=== PATIENT | female | born 1960 | race Asian ===

== ENCOUNTER 2018-06-29 05:41 | Day surgery (SDC) | payer OTHER ==
[~2018-06-29] VITALS: Ht 157.5 cm; Wt 84.1 kg
[~2018-06-29 05:41] MED LIST: LOSA25TA6 PO; VENL25TA PO
[2018-06-29] MEDS ORDERED: LACTATED RINGERS 1,000 ML IV SCH (06:11)
[2018-06-29 06:46] LABS: HCG UR SG 1.026 (1.003-1.030)
[2018-06-29 06:47] VITALS: BP 134/81
[2018-06-29 06:54] LABS: BASOPHILS # (AUTO) 0.03 x10^3/uL (0-0.1); BASOPHILS % (AUTO) 0 % (0-1); EOSINOPHILS # (AUTO) 0.19 x10^3/uL (0-0.4); EOSINOPHILS % (AUTO) 2 % (1-7); LYMPHOCYTES # (AUTO) 1.58 x10^3/uL (1-3.4); LYMPHOCYTES % (AUTO) 20 % (22-44); MD NO; MEAN CORPUSCULAR HEMOGLOBIN 31.7 pg (27.0-34.8); MEAN CORPUSCULAR HGB CONC 33.6 g/dL (32.4-35.8); MEAN CORPUSCULAR VOLUME 94.2 fL (80-100); MEAN PLATELET VOLUME 9.9 fL (7.4-10.4); MONOCYTES # (AUTO) 0.45 x10^3/uL (0.2-0.8); MONOCYTES % (AUTO) 6 % (2-9); NEUTROPHILS # (AUTO) 5.73 x10^3/uL (1.8-6.8); NEUTROPHILS % (AUTO) 72 % (42-75); PLATELET COUNT 273 x10^3/uL (130-400); RED BLOOD COUNT 5.01 x10^6/uL (3.82-5.3); RED CELL DISTRIBUTION WIDTH 14.2 % (9.6-15.2)
[2018-06-29] MEDS ORDERED: HEPARIN 1,000 UNITS/ML, 10ML ONE (06:54)
[2018-06-29] MEDS ORDERED: INDOCYANINE GREEN 25 MG VIAL ONE (06:54)
[2018-06-29] MEDS ORDERED: BUPIVACAINE/PF-EPI 0.25% 1:200K ONE ×2 (06:54→10:58)
[2018-06-29] MEDS ORDERED: MORPHINE SULFATE 4 MG/ML, 1ML IVPush PRN (07:00)
[2018-06-29] MEDS ORDERED: MEPERIDINE/PF 25MG/0.5ML IVPush PRN (07:00)
[2018-06-29] MEDS ORDERED: FENTANYL PF 100 MCG/2ML IV PRN (07:00)
[2018-06-29] MEDS ORDERED: ACETAMINOPHEN 500 MG TABLET PO ONE (07:00)
[2018-06-29] MEDS ORDERED: LABETALOL 5MG/ML, 20ML IV PRN (07:00)
[2018-06-29] MEDS ORDERED: SCOPOLAMINE PATCH, 1.5MG PATCH.TD72 TD PRN (07:00)
[2018-06-29] MEDS ORDERED: METOPROLOL 1 MG/ML, 5ML IV PRN (07:00)
[2018-06-29] MEDS ORDERED: HYDROmorphone 1 MG/ML, 1ML IV PRN (07:00)
[2018-06-29] MEDS ORDERED: MIDAZOLAM 1 MG/ML, 2ML IV PRN (07:00)
[2018-06-29] MEDS ORDERED: ALBUTEROL SULFATE 2.5 MG/3 ML NPPB PRN (07:00)
[2018-06-29] MEDS ORDERED: hydrALAzine 20 MG/ML, 1ML IV PRN (07:00)
[2018-06-29] MEDS ORDERED: OXYcodone 5 MG/5 ML ORAL.SOL UDC PO PRN (07:00)
[2018-06-29] MEDS ORDERED: LORazepam 2 MG/ML, 1ML IVPush PRN (07:00)
[2018-06-29] MEDS ORDERED: GABAPENTIN 300 MG CAPSULE PO ONE (07:00)
[2018-06-29] MEDS ORDERED: PROCHLORPERAZINE 5 MG/ML, 2ML IV PRN (07:00)
[2018-06-29] MEDS ORDERED: ONDANSETRON ODT 8 MG PO ONE (07:00)
[2018-06-29 07:04] LABS: ALANINE AMINOTRANSFERASE 28 U/L (12-78); ALBUMIN 3.6 g/dL (3.4-5.0); ANION GAP 9 mmol/L (5-15); CALCIUM 8.8 mg/dL (8.5-10.1); CHLORIDE 107 mmol/L (98-107); CREATININE 0.77 mg/dL (0.55-1.02); INTERNATIONAL NORMALIZED RATIO 0.97 (0.93-1.1)
[2018-06-29 07:07] LABS: ALKALINE PHOSPHATASE 76 U/L (45-117); BILIRUBIN,TOTAL 0.7 mg/dL (0.2-1.0); TOTAL PROTEIN 7.5 g/dL (6.4-8.2)
[2018-06-29] MEDS ORDERED: CEFAZOLIN 1,000 MG ONE ×2 (07:15→07:42)
[2018-06-29] MEDS ORDERED: LIDOCAINE-MPF 2% ,5ML ONE (07:15)
[2018-06-29] MEDS ORDERED: FENTANYL PF 100 MCG/2ML ONE (07:15)
[2018-06-29] MEDS ORDERED: PROPOFOL 10 MG/ML, 20ML ONE (07:15)
[2018-06-29] MEDS ORDERED: MIDAZOLAM 1 MG/ML, 2ML ONE (07:15)
[2018-06-29] MEDS ORDERED: DEXAMETHASONE 4 MG/ML, 1ML ONE ×2 (07:15)
[2018-06-29] MEDS ORDERED: SUCCINYLCHOLINE 20 MG/ML, 10ML ONE (07:16)
[2018-06-29] MEDS ORDERED: ROCURONIUM 10MG/ML,5ML ONE ×2 (07:16→09:27)
[2018-06-29] MEDS ORDERED: LIDOCAINE 4%, 4 ML SYR/CANN TP ONE (07:42)
[2018-06-29] MEDS ORDERED: PHENYLEPHRINE 10 MG/ML ONE (07:42)
[2018-06-29] MEDS ORDERED: BUPIVACAINE/PF-EPI 0.25% 1:200K INFIL ONE (08:39)
[2018-06-29] MEDS ORDERED: INDOCYANINE GREEN 25 MG VIAL INJ ONE (08:41)
[2018-06-29] MEDS ORDERED: NEOMY/POLYMYXIN B GU IRR. 1 ML IRRIG ONE ×2 (08:42→08:58)
[2018-06-29] MEDS ORDERED: GLYCOPYRROLATE 0.2MG/1ML, 5ML ONE (09:28)
[2018-06-29] MEDS ORDERED: NEOSTIGMINE 1 MG/ML, 10ML ONE (09:28)
[2018-06-29] MEDS ORDERED: FLUORESCEIN SODIUM 500 MG/5 ML ONE (09:44)
[2018-06-29] MEDS ORDERED: KETOROLAC 30 MG/1 ML ONE (10:21)
[2018-06-29] MEDS ORDERED: OXYcodone 5 MG/5 ML ORAL.SOL UDC ONE (10:22)
[2018-06-29] MEDS ORDERED: KETOROLAC 30 MG/1 ML IVPush ONE (10:30)
== END 2018-06-29 16:20 | disposition home or self-care (01) ==
LOC: OUT 05:41
PROVIDERS: ATTEND Specialist
DX: D25.9 Leiomyoma of uterus, unspecified (principal); N39.3 Stress incontinence (female) (male); N83.8 Other noninflammatory disorders of ovary, fallopian tube and broad ligament; I10 Essential (primary) hypertension; N95.0 Postmenopausal bleeding; J45.909 Unspecified asthma, uncomplicated; G43.909 Migraine, unspecified, not intractable, without status migrainosus; Z98.890 Other specified postprocedural states; Z72.89 Other problems related to lifestyle; Z87.891 Personal history of nicotine dependence
CPT/HCPCS: 36415; 38500; 57288; 58571; 71045; 80053; 81025; 85025; 85610; 85730; 86850; 86900; 88307; 88331; 93005; J0330; J0690; J1100; J1885; J2250; J2370; J2704; J2710; J3010; J3490; J7120; Q0162; S2900; J1644; C1771